=== PATIENT | female | born 1940 ===

== ENCOUNTER 2018-12-03 09:01 | Outpatient (CLI) | payer MEDICARE | END 2018-12-03 09:02 | disposition home or self-care (01) | LOC: RAD 09:02 ==

== ENCOUNTER 2019-02-22 11:46 | Emergency (ER) | payer MEDICARE ==
[2019-02-22 11:57] VITALS: TEMP 98.7; O2SAT 98
--- NOTE | 2019-02-22 12:30 | ED PDOC ---
Arrival/HPI - General Chief Complaint: Female Genitourinary Time Seen by Provider: 02/22/19 12:05 Historian: Patient - History of Present Illness Narrative History of Present Illness (Text): 02/22/19 12:30 A 78 year old female, whose past medical history includes hypertension, presents to the emergency department complaining of more frequent urinary incontinence for the last 2 days. Patient reports she normally has urinary incontinence, however has been having these episodes more often than usual every hour. Patient notes also experiencing right hip pain, however denies any injury/trauma, abdominal pain, back pain, fever, chills, nausea, vomiting, or any other complaints at this time. Denies any history of smoking, EtOH/substance abuse. No PMD Time/Duration: < week (2 days) Past Medical History - Provider Review Nursing Documentation Reviewed: Yes - Infectious Disease Hx of Infectious Diseases: None - Reproductive Menopause: Yes - Cardiac Hx Cardiac Disorders: Yes Hx Hypertension: Yes - Pulmonary Hx Respiratory Disorders: No - Neurological Hx Neurological Disorder: No - HEENT Hx HEENT Disorder: No - Integumentary Hx Dermatological Disorder: No - Psychiatric Hx Substance Use: No - Anesthesia Hx Anesthesia: No Family/Social History - Physician Review Nursing Documentation Reviewed: Yes Family/Social History: No Known Family HX Smoking Status: Never Smoked Hx Alcohol Use: No Hx Substance Use: No Allergies/Home Meds Allergies/Adverse Reactions: Allergies No Known Allergies Allergy (Verified 04/08/14 11:29) Home Medications: Home Meds Medication Instructions Recorded Confirmed Atorvastatin [Lipitor] 1 tab PO DAILY 04/08/14 04/08/14 Buspirone Hydrochloride [Buspar] 1.5 tab PO BID 04/08/14 04/08/14 Metformin Hydrochloride [Metformin] 1 tab PO DAILY 04/08/14 04/08/14 Montelukast [Singulair] 1 tab PO DAILY 04/08/14 04/08/14 Review of Systems - Physician Review All systems were reviewed & negative as marked: Yes - Review of Systems Constitutional: absent: Fatigue, Fevers, Night Sweats Respiratory: absent: SOB, Cough Cardiovascular: absent: Chest Pain, Palpitations, Syncope Gastrointestinal: absent: Abdominal Pain, Nausea, Vomiting Genitourinary Female: Frequency (urinary incontinence). absent: Dysuria, Hematuria Musculoskeletal: Other (right hip pain, denies any injury/trauma.). absent: Back Pain Physical Exam Vital Signs Reviewed: Yes Vital Signs Temp Pulse Resp BP Pulse Ox 02/22/19 11:53 98.7 F 77 20 161/65 H 98 Temperature: Afebrile Blood Pressure: Hypertensive Pulse: Regular Respiratory Rate: Normal Appearance: Positive for: Well-Appearing, Non-Toxic, Comfortable Pain Distress: None Mental Status: Positive for: Alert and Oriented X 3 - Systems Exam Head: Present: Atraumatic, Normocephalic Pupils: Present: PERRL Extroacular Muscles: Present: EOMI Conjunctiva: Present: Normal Mouth: Present: Moist Mucous Membranes Neck: Present: Normal Range of Motion Respiratory/Chest: Present: Clear to Auscultation, Good Air Exchange. No: Respiratory Distress, Accessory Muscle Use Cardiovascular: Present: Regular Rate and Rhythm, Normal S1, S2. No: Murmurs Abdomen: No: Tenderness, Distention, Peritoneal Signs, Rebound, Guarding Back: Present: Normal Inspection. No: CVA Tenderness Upper Extremity: Present: Normal Inspection. No: Cyanosis, Edema Lower Extremity: Present: Normal Inspection. No: Edema, Tenderness Neurological: Present: GCS=15, CN II-XII Intact, Speech Normal, Gait Normal Skin: Present: Warm, Dry, Normal Color. No: Rashes Psychiatric: Present: Alert, Oriented x 3, Normal Insight, Normal Concentration Medical Decision Making ED Course and Treatment: 02/22/19 12:31 Impression: 78 year old female with more frequent urinary incontinence. No acute findings on physical exam. Plan: -- Labs -- Urinalysis -- Urine Culture -- Reassess and disposition Progress Notes: 02/22/19 14:08 Patient with urinary frequency and increasing urinary incontinence. Patient will be treated for UTI, even though her urinalysis does not definitively show a urinary tract infection. Urine culture is been obtained. Follow-up with PMD. Follow-up in ER as needed. - Scribe Statement The provider has reviewed the documentation as recorded by the Desmond Milan Provider Scribe Attestation: All medical record entries made by the Scribollie were at my direction and personally dictated by me. I have reviewed the chart and agree that the record accurately reflects my personal performance of the history, physical exam, medical decision making, and the department course for this patient. I have also personally directed, reviewed, and agree with the discharge instructions and disposition. Disposition/Present on Arrival - Present on Arrival Any Indicators Present on Arrival: No History of DVT/PE: No History of Uncontrolled Diabetes: No Urinary Catheter: No History of Decub. Ulcer: No History Surgical Site Infection Following: None - Disposition Have Diagnosis and Disposition been Completed?: Yes Diagnosis: Incontinence, Urinary tract infection Disposition: HOME/ ROUTINE Disposition Time: 14:09 Patient Plan: Discharge Condition: GOOD Discharge Instructions (ExitCare): Urinary Tract Infections in Adults, Urinary Incontinence Additional Instructions: Must follow-up with PMD and urologist. Follow-up in ER as needed. Prescriptions: Sulfamethoxazole/Trimethoprim [Bactrim DS 800 mg-160 mg] 1 tab PO BID #14 tab Phenazopyridine HCl [Pyridium] 200 mg PO Q8 #9 tablet Forms: [employer] (Samoan)
[2019-02-22 12:42] LABS: BASO # 0.01 K/mm3 (0.0-2.0); BASO % 0.2 % (0.0-3.0); EOS # 0.1 (0.0-0.7); EOS % 2.9 % (1.5-5.0); HEMOGLOBIN 12.6 g/dL (12.0-16.0); LYMPH # 0.9 (1.2-3.4); LYMPH % 19.1 % (22.0-35.0); MEAN CELL VOLUME 84.7 fl (80.0-105.0); MEAN CORPUSCULAR HGB CONC 33.1 g/dl (31.0-37.0); MEAN PLATELET VOLUME 11.3 fl (7.0-11.0); MONO # 0.2 (0.1-0.6); MONO % 5.3 % (1.0-6.0); RBC 4.5 10^6/uL (3.5-6.1); RED CELL DISTRIBUTION WIDTH 13.1 % (11.5-14.5); WHITE BLOOD COUNT 4.6 10^3/uL (4.5-11.0)
[2019-02-22 12:50] LABS: URINE BILIRUBIN NEGATIVE (NEGATIVE); URINE BLOOD SMALL (NEGATIVE); URINE GLUCOSE (UA) NEGATIVE (NEGATIVE); URINE LEUKOCYTE ESTERASE NEGATIVE Leu/uL (NEGATIVE); URINE PROTEIN NEGATIVE mg/dL (<30 mg/dL); URINE UROBILINOGEN 0.2 E.U./dL (<1 E.U./dL)
[2019-02-22 12:53] LABS: ALB/GLOB RATIO 1.4 (1.1-1.8); ALBUMIN 4.4 g/dL (3.0-4.8); ALT/SGPT 19 U/L (7-56); AST/SGOT 22 U/L (14-36); BLOOD UREA NITROGEN 24 mg/dL (7-21); CALCIUM 9.5 mg/dL (8.4-10.5); GFR NON-AFRICAN AMERICAN 53
[2019-02-22 12:56] LABS: URINE APPEARANCE CLEAR (CLEAR); URINE COLOR YELLOW (YELLOW)
[2019-02-22 13:10] LABS: URINE BACTERIA FEW /hpf; URINE WBC 0 - 2 /hpf (0-6)
[2019-02-22 14:19] VITALS: BP 160/80; PULSE 74; RESP 16
== END 2019-02-22 14:14 | disposition home or self-care (01) ==
LOC: ED 11:46
DX: N39.0 Urinary tract infection, site not specified (principal); R32 Unspecified urinary incontinence; I10 Essential (primary) hypertension